=== PATIENT | female | born 1980 | race Caucasian/White ===

== ENCOUNTER → 2018-12-04 | Day surgery (SDC) | payer OTHER ==
[~2018-12-04] MED LIST: FENTANYL CITRATE/PF 100MCG/2 ML INJ ONE; FERROUS SULFAT325 M1 PO; LEVOTHYROXINE112 MCG PO; LEXAPRO10 MG PO; LUNESTA2 MG PO; MIDAZOLAM HCL 2 MG/2 ML VIAL ONE; MIDAZOLAM HCL 5MG/ML 2ML VIAL ONE; NEXIUM40 M1 PO; PROPOFOL IV EMULSION 10 MG/ML 50 ML VIAL ONE
--- OUTSIDE RECORDS SUMMARY | 2018-12-04 09:08 | XMS REPORT ---
Author Author [facility] Address Unknown Phone Unavailable Care Team Providers Care Assembler Clip On Sunglasses Name Role Phone Unavailable Unavailable Payers Payer Name Policy Type Policy Number Effective Date Expiration Date Problems This patient has no known problems. Allergies, Adverse Reactions, Alerts Allergy Name Allergy Type Status Severity Reaction(s) Onset Date Inactive Date Treating Clinician Comments No Known Allergies DA Active U 2018-10-26 00:00:00 Medications This patient has no known medications. Results Test Description Test Time Test Comments Text Results Atomic Results Result Comments [facility] 2018-10-28 15:37:00 RUN DATE: 10/28/18 [employer] PAGE 1 RUN TIME: 1537 Specimen Inquiry RUN USER: INTERFACE PATIENT: JOSH ALDANA LOC: GERI U #: [id number] AGE/SX: 38/F ROOM: RE10/26/18[facility] DR: Ludmila Villafuerte MD : 78 BED: DIS: STATUS: [facility] TLOC: SPEC #: [id number] RECD: 10/27/18 STATUS: [facility] #: [id number] CARL: 10/26/18- SUBM DR: Ludmila Villafuerte MD ENTERED: 10/27/18 SP TYPE: GALLBLADD OTHR DR: Sarmad Boudreaux DO ORDERED: GROSS COPIES TO: Ludmila Villafuerte MD [address] [place] [address] [place], [place] [id number] Sarmad Boudreaux DO [address] [place], [place] [id number] MAR KERS: ABNORMAL TISSUE, GALLBLADDER PROCEDURES: GROSS (10/28/18-1028) TISSUES: GALLBLADDER, NOS CLINICAL HISTORY COLLECTION DATE: 10/26/18 FINAL DIAGNOSIS Gallbladder, cholecystectomy: CHOLELITHIASIS ACUTE AND CHRONIC CHOLECYSTITIS WITH PROMINENT ROKITANSKY-ASCHOFF SINUS FORMATION AND PROMINENT GRANULATION TISSUE FORMATION NO MALIGNANCY IDENT IFIED DMW/eboni A [id number] MACROSCOPIC The specimen is received in formalin, labeled with the patient's name, and identified as "gallbladder". It consists of a gallbladder which measures 10 X 3.8 X 3.3 cm. The gallbladder is packed with multiple green-black multifaceted gallstones measuring from 0.9 to 1.3 cm. Gallstone fragments are also present CONTINUED ON NEXT PAGE RUN DATE: 10/28/18 [facility] PAGE 2 RUN TIME: 1537 Specimen Inquiry RUN USER: INTERFACE SPEC #: [id number] PATIENT: JOSH ALDANA #[id number] (Continued) MACROSCOPIC (Continued) as well as black pigment type gallstones measuring from less than 0.1 up to 0.2 cm. The gallbladder mucosa is partially velvety and partially has a finely trabeculated appearance. The gallbladder wall is thickened measuring up to 1.2 cm in thickness. 0.3 cm of cystic duct is attached to the gallbladder. Samples of the specimen are submitted for microscopic evaluation in cassette (1A and 1B). GROSS PERFORMED AT [facility] [address] [place] [address] (p)[phone] MICROSCOPIC All of the stains, including any controls performed, stain appropriately. MICROSCOPIC PERFORMED AT [facility] [address] [place] [address] (R)[phone] PERFORMING SITE Diagnosis performed at: [facility], [address] [place] [address] Signed SIGNATURE ON FILE Erum Jimenze MD 10/28/18 1537 END OF REPORT UR HCG QUAL 2018-10-26 18:20:00 UR HCG QUAL (test code=HCGQLU) NEGATIVE This HCGQL test is NOT applicable for MALE patients.Check with nurse about probable order error.If Tumor Marker Test needed, nurse should order test "HCGTU"(Test #550.80467)
--- OUTSIDE RECORDS SUMMARY | 2018-12-04 09:08 | XMS REPORT | Clinical Summary ---
Author Author [facility] Address Unknown Phone Unavailable Care Team Providers Care Junior Designer Name Role Phone Sarmad Boudreaux DO PCP Allergies No Known Allergies Medications End Date Status Medication Sig Dispensed Refills Start Date Active levothyroxine (SYNTHROID, Take 175 mcg 0 LEVOXYL) 175 mcg tablet by mouth every morning. Active ESZOPICLONE (LUNESTA Take by 0 ORAL) mouth. PRN Active escitalopram (LEXAPRO) 10 Take 10 mg by 2 MG tablet mouth daily. 9 Active esomeprazole (NexIUM) 40 Take 40 mg by 0 MG capsule mouth daily before breakfast. 06/11/2018 fluconazole (DIFLUCAN) Take 1 tablet 1 tablet 0 150 MG tablet (150 mg 9 total) by mouth once for 1 dose. Active Problems Problem Noted Date UTI (urinary tract infection) 10/27/2018 Encounters Care Team Description Date Type Specialty April Mason MD Breast cancer screening 11/25/2018 Hospital Radiology Encounter April Mason MD Other iron deficiency anemia 11/25/2018 Hospital Radiology Encounter April Mason MD Breast cancer screening (Primary Dx) 11/15/2018 Transcribe Access Orders April Mason MD Well woman exam (Primary Dx); Other iron deficiency anemia 11/11/2018 Office Visit Obstetrics and Gynecology April Mason MD 06/11/2018 Telephone Obstetrics and Gynecology April Mason MD 06/10/2018 Telephone Obstetrics and Gynecology after 12/03/2017 Family History Medical History Relation Name Comments Esophageal cancer Father stage 4 No Known Problems Mother Relation Name Status Comments Father Alive Mother Social History Date Tobacco Use Types Packs/Day Years Used Former Smoker Smokeless Tobacco: Never Used Alcohol Use Drinks/Week oz/Week Comments Yes OCC Sex Assigned at Date Recorded Female 11/10/2018 11:48 AM CDT Industry Job Start Date Occupation Not on file Not on file Not on file Travel End Travel History Travel Start No recent travel history available. Last Filed Vital Signs Time Taken Vital Sign Reading 11/11/2018 10:58 AM CDT Blood Pressure 111/71 11/11/2018 10:58 AM CDT Pulse 79 - Temperature - - Respiratory Rate - - Oxygen Saturation - - Inhaled Oxygen - Concentration 11/11/2018 10:58 AM CDT Weight 70.9 kg (156 lb 3.2 oz) 11/11/2018 10:58 AM CDT Height 170.2 cm (5' 7") 11/11/2018 10:58 AM CDT Body Mass Index 24.46 Plan of Treatment Care Team Description Date Type Specialty April Mason MD [address] [place] [address] [phone] 12/14/2018 Office Visit Obstetrics and Gynecology Health Maintenance Due Date Last Done Comments INFLUENZA VACCINE 01/06/2019 Procedures Comments Procedure Name Priority Date/Time Associated Diagnosis MAMMO BREAST SCREEN Routine 11/25/2018 Breast cancer screening TOMOSYNTHESIS BILATERAL 9:58 AM CDT US PELVIC TRANSVAGINAL Routine 11/25/2018 Other iron deficiency 9:54 AM CDT anemia US PELVIC TRANSABDOMINAL Routine 11/25/2018 Other iron deficiency 9:54 AM CDT anemia PARTIAL THROMBOPLASTIN Routine 11/11/2018 Other iron deficiency TIME (PTT) 11:43 AM CDT anemia PROTHROMBIN TIME WITH INR Routine 11/11/2018 Other iron deficiency 11:43 AM CDT anemia T4, FREE Routine 11/11/2018 Other iron deficiency 11:43 AM CDT anemia THYROID STIMULATING Routine 11/11/2018 Other iron deficiency HORMONE 11:43 AM CDT anemia HPV MRNA E6/E7 REFLEX Routine 11/11/2018 HPV 16, 18/45 (REFLEX) 11:39 AM CDT THINPREP TIS PAP Routine 11/11/2018 11:39 AM CDT after 12/03/2017 Results * Mammo Breast Screen Tomosynthesis Bilateral (11/25/2018 9:58 AM CDT) Specimen Narrative Performed At EXAMINATION:MAMMO BREAST SCREEN TOMOSYNTHESIS BILATERAL11/25/2018 [facility] Computer-assisted detection was utilized in the interpretation of this exam. COMPARISONS:None. Baseline imaging. INDICATION:38 year-old female who presents for annual evaluation. FINDINGS: There is scattered fatty and fibroglandular tissue. There are no suspicious mammographic findings. IMPRESSION: No mammographic evidence of malignancy. In the absence of any clinical change, continued routine annual mammographic surveillance per ACR guidelines is recommended. BI-RADS Category 2: BENIGN. [id number] Performing Organization Address City/State/Zipcode Phone Number [facility] [address] [place] [address] * US Pelvic Transabdominal (11/25/2018 9:54 AM CDT) Specimen Narrative Performed At EXAMINATION:US PELVIC TRANSABDOMINAL, US PELVIC TRANSVAGINAL RADIANT CLINICAL HISTORY:D50.8 Other iron deficiency anemias, Vaginal bleeding abnormalnon- COMPARISON:None. TECHNIQUE:Transabdominal and endovaginal sonographic images of the pelvis were obtained. Grayscale, color Doppler, and spectral waveform analysis of the ovarian vessels was performed. FINDINGS: The uterus is 8 x 4.3 x 4.8 cm.The endometrial strip is obscured by well positioned intrauterine device.There is no myometrial abnormality. The right ovary is 3.3 x 2.7 x 2.3 cm The left ovary is 3.3 x 2.5 x 1.9 cm Both ovaries are normal in appearance.Blood flow to the ovaries is normal. There is a tiny, physiologic volume of free pelvic fluid. There is no adnexal mass. Impression: Appropriately positioned IUD. Otherwise normal study. [id number] Procedure Note Interface, Radiology Results Incoming - 11/25/2018 10:39 AM CDT EXAMINATION: US PELVIC TRANSABDOMINAL, US PELVIC TRANSVAGINAL CLINICAL HISTORY: D50.8 Other iron deficiency anemias, Vaginal bleeding abnormal non- COMPARISON: None. TECHNIQUE:Transabdominal and endovaginal sonographic images of the pelvis were obtained. Grayscale, color Doppler, and spectral waveform analysis of the ovarian vessels was performed. FINDINGS: The uterus is 8 x 4.3 x 4.8 cm. The endometrial strip is obscured by well positioned intrauterine device. There is no myometrial abnormality. The right ovary is 3.3 x 2.7 x 2.3 cm The left ovary is 3.3 x 2.5 x 1.9 cm Both ovaries are normal in appearance. Blood flow to the ovaries is normal. There is a tiny, physiologic volume of free pelvic fluid. There is no adnexal mass. Impression: Appropriately positioned IUD. Otherwise normal study. [id number] Performing Organization Address City/State/Zipcode Phone Number [facility] [address] [place] [address] * US Pelvic Transvaginal (11/25/2018 9:54 AM CDT) Specimen Narrative Performed At EXAMINATION:US PELVIC TRANSABDOMINAL, US PELVIC TRANSVAGINAL [facility] CLINICAL HISTORY:D50.8 Other iron deficiency anemias, Vaginal bleeding abnormalnon- COMPARISON:None. TECHNIQUE:Transabdominal and endovaginal sonographic images of the pelvis were obtained. Grayscale, color Doppler, and spectral waveform analysis of the ovarian vessels was performed. FINDINGS: The uterus is 8 x 4.3 x 4.8 cm.The endometrial strip is obscured by well positioned intrauterine device.There is no myometrial abnormality. The right ovary is 3.3 x 2.7 x 2.3 cm The left ovary is 3.3 x 2.5 x 1.9 cm Both ovaries are normal in appearance.Blood flow to the ovaries is normal. There is a tiny, physiologic volume of free pelvic fluid. There is no adnexal mass. Impression: Appropriately positioned IUD. Otherwise normal study. [id number] Procedure Note Interface, Radiology Results Incoming - 11/25/2018 10:39 AM CDT EXAMINATION: US PELVIC TRANSABDOMINAL, US PELVIC TRANSVAGINAL CLINICAL HISTORY: D50.8 Other iron deficiency anemias, Vaginal bleeding abnormal non- COMPARISON: None. TECHNIQUE:Transabdominal and endovaginal sonographic images of the pelvis were obtained. Grayscale, color Doppler, and spectral waveform analysis of the ovarian vessels was performed. FINDINGS: The uterus is 8 x 4.3 x 4.8 cm. The endometrial strip is obscured by well positioned intrauterine device. There is no myometrial abnormality. The right ovary is 3.3 x 2.7 x 2.3 cm The left ovary is 3.3 x 2.5 x 1.9 cm Both ovaries are normal in appearance. Blood flow to the ovaries is normal. There is a tiny, physiologic volume of free pelvic fluid. There is no adnexal mass. Impression: Appropriately positioned IUD. Otherwise normal study. [facility]-[id number] Performing Organization Address City/[facility] Phone Number [facility] [address] [place] [address] * Partial thromboplastin time, activated (11/11/2018 11:43 AM CDT) PTT 28 22 - 34 sec [facility] Comment: DIAGNOSTICS This test has not been HOLLAND validated for monitoring unfractionated heparin therapy. For testing that is validated for this type of therapy, please refer to the Heparin Anti-Xa assay (test code 54229). For additional information, please refer to http://education.Halotechnics/faq/JOJ591 (This link is being provided for informational/educational purposes only.) Specimen Blood Narrative Performed At FASTING:YES [facility] FASTING: YES Resulting Agency Comment Performing Organization Information: Site ID: [id number] Name: [facility] Address: [address] [place] [phone] Director: Jaylin Solis Performing Organization Address [facility] Medical [place]ercode [place] [address] * Prothrombin time with INR (11/11/2018 11:43 AM CDT) INR 1.0 [facility] Comment: DIAGNOSTICS Reference [facility] Range 0.9-1.1 Moderate-intensity Warfarin Therapy 2.0-3.0 Higher-intensity Warfarin Therapy 3.0-4.0 Prothrombin 10.5 9.0 - 11.5 sec [facility] time Comment: DIAGNOSTICS For more information on this [facility] test, go to: http://education.Swarmforce/faq/SXV886 Specimen Blood Narrative Performed At FASTING:YES [facility] FASTING: YES Resulting Agency Comment Performing Organization Information: Site ID: [id number] Name: [facility] Address: [address] [place] [phone] Director: Jaylin Solis Performing Organization Address [facility] Phone Number [place] [address] * Thyroid stimulating hormone (11/11/2018 11:43 AM CDT) TSH 74.57 (H) mIU/L [facility] Comment: [facility] Range > or=20 Years0.40-4.50 Ranges First trimester0.26-2.66 Second trimester 0.55-2.73 Third trimester0.43-2.91 Specimen Blood Narrative Performed At FASTING:YES [facility] FASTING: YES Resulting Agency Comment Performing Organization Information: Site ID: [id number] Name: [facility] Address: [address] [place] [address] Director: Jaylin Solis Performing Organization Address [facility] Phone Number [facility] [place] [address] * T4, free (11/11/2018 11:43 AM CDT) T4, free 0.5 (L) 0.8 - 1.8 ng/dL [facility] Specimen Blood Narrative Performed At FASTING:YES [facility] FASTING: YES Resulting Agency Comment Performing Organization Information: Site ID: [id number] Name: [facility] Address: [address] [place] [address] Director: Jaylin Solis Performing Organization Address [facility] [place] [address] * HPV mRNA E6/E7 REFLEX HPV 16, 18/45 (11/11/2018 11:39 AM CDT) HPV mRNA e6/e7 Not Detected Not Detected [facility] Comment: DIAGNOSTICS-KIKI This test was performed using ING II the APTIMA HPV Assay ([employer] This assay detects E6/E7 viral messenger RNA (mRNA) from 14 high-risk HPV types (16,18,31,33,35,39,45,51,52,56 ,58,59,66,68). The analytical performance characteristics of this assay have been determined by [employer]. The modifications have not been cleared or approved by the FDA. This assay has been validated pursuant to the CLIA regulations and is used for clinical purposes. Specimen Resulting Agency Comment Performing Organization Information: Site ID: [id number] Name: [facility] Address: [address] [place] [phone] Director: Dr. Fransisco Kincaid Performing Organization Address [facility] Centercode Phone Number JAYSHREE CUMMINGS[address] [address] II * THINPREP TIS PAP (11/11/2018 11:39 AM CDT) Clinical Comment: VAGINAL BLEEDING ON [facility] information EXAM TODAY DIAGNOSTICS [facility] Date of last NONE GIVEN [facility] menstrual DIAGNOSTICS period [facility] Prev. pap: NONE GIVEN [facility] DIAGNOSTICS [facility] Prev. bx: NONE GIVEN [facility] Source Comment: Cervix, Endocervix [facility]NOSTICS [facility] Statement of Comment: [facility] adequacy Satisfactory for evaluation. DIAGNOSTICS Endocervical/transformation [facility] zone component present. Age and/or menstrual status not provided Interpretation/ Comment: Negative for [facility] result: intraepithelial lesion or DIAGNOSTICS malignancy. [facility] Infection Comment: [facility] Shift in vaginal joya DIAGNOSTICS suggestive of bacterial [facility] vaginosis. Comment Comment: [facility] This Pap test has been DIAGNOSTICS evaluated with computer [employer] assisted technology. Tip of collection device in vial [employer] Comment: [facility] t LLL,CT(ASCP) DIAGNOSTICS CT screening location: [address], [place] [address] Comment Comment: [facility] EXPLANATORY NOTE: DIAGNOSTICS The Pap is a screening test [facility] for cervical cancer. It is not a diagnostic test and is subject to false negative and false positive results. It is most reliable when a satisfactory sample, regularly obtained, is submitted with relevant clinical findings and history, and when the Pap result is evaluated along with historic and current clinical information. Specimen Resulting Agency Comment Performing Organization Information: Site ID: [id number] Name: [facility] Address: [address] [place] [id number] Director: Jaylin Solis Performing Organization Address [facility]/Zipcode Phone Number JAYSHREE CUMMINGS [address] [address] after 12/03/2017 Insurance Type Payer Benefit Subscriber ID Effective Phone Address Plan / Dates Group PPO [employer] xxxxxxxxx [id number] [place]/HELEN resent EN RULE Advance Directives Patient has advance care planning documents on file. For more information, abbey neil contact: Thierno Barnett [address] [place] [address]
[2018-12-04 16:01] LABS: IRON 24 ug/dL (50-170)
--- NOTE | 2018-12-04 17:39 | Operative Report ---
DATE OF PROCEDURE: 12/04/2018 SURGEON: Gamaliel Sims MD PROCEDURE: EGD with biopsies and colonoscopy with polypectomy. INDICATIONS FOR EGD: Anemia. INDICATIONS FOR COLONOSCOPY: Anemia. MEDICATIONS: The patient was done under MAC. Please see anesthesiologist's note. PROCEDURE #1: With the patient in left lateral decubitus position, a flexible fiberoptic Olympus gastroscope was introduced into the esophagus under direct visualization without any difficulty. An approximately 3 mm submucosal firm nodule was noted in the mid esophagus and that was biopsied. There was an approximately 3 cm tongue of velvety red mucosa extending proximally from the GE junction and that was biopsied to rule out Desai's. The scope was then advanced with ease into the stomach. Apparently, the patient has a large hiatal hernia, but this also could be due to her gastric sleeve surgery. Mucosa overlying the antrum revealed some patchy intense erythema and moderate edema and biopsies were obtained from the antrum and the body. Some postoperative changes were noted in the body. The pylorus was intubated with ease and the scope was advanced all the way to the second portion of the duodenum. Biopsies were obtained from the proximal second portion and duodenal bulb to rule out sprue. A cluster of nodule was noted in the distal bulb that was biopsied. The scope was then withdrawn back into the stomach and retroflexed and some postoperative changes were noted along with the hiatal hernia. The scope was then straightened out, it was subsequently withdrawn. The patient tolerated the procedure well. IMPRESSION: 1. Approximately 3 mm firm submucosal nodule, mid esophagus, biopsied. 2. Rule out Desai esophagus. 3. Status post gastric sleeve. 4. Gastritis, biopsied. Biopsies sent to stain for H pylori. 5. Cluster of nodule, distal bulb, biopsied. 6. Rule out sprue. PLAN: Follow up histology. Continue Nexium 40 mg one p.o. q.a.m. a.c. PROCEDURE #2: The patient was then turned around after adequate lubrication of the anal canal. A flexible fiberoptic Olympus colonoscope was inserted into the rectum with ease and advanced all the way to the cecum. It was then withdrawn slowly. Mucosa overlying the cecum, ascending colon, transverse colon, and descending colon grossly appeared to be within normal limits. Two polyps were snared and four polyps were hot biopsied from the sigmoid colon. The rectum appeared to be within normal limits. The scope was then retroflexed into the distal rectum and small internal hemorrhoids were noted, none of which was actively bleeding. The scope was then straightened out it was subsequently withdrawn patient tolerated procedure well. IMPRESSION: 1. Sigmoid colon polyps x6, 2 snared and 4 hot biopsied. 2. Internal hemorrhoids, none actively bleeding. PLAN: Follow up histology. Initiate high-fiber, low-fat diet. Initiate high-fiber supplement. The patient will need a small bowel series to complete workup. Might benefit from a followup colonoscopy in 5 years. Gamaliel Sims MD [facility] /[id number] cc: Sarmad Boudreaux DO
[2018-12-04 18:47] LABS: % IRON SATURATION 5 % (15-50); TOTAL IRON BINDING CAPACITY 522 ug/dL (261-478); TRANSFERRIN 373 mg/dL (180-382)
[2018-12-08 15:22] LABS: FOLATE 15.7 ng/mL (7.0-15.4)
== END | disposition home or self-care (01) ==
LOC: OR 09:06
PROVIDERS: ATTEND Internal Medicine Gastroenterology
DX: D64.9 Anemia, unspecified (principal); K63.5 Polyp of colon; K29.50 Unspecified chronic gastritis without bleeding; K22.70 Barrett's esophagus without dysplasia; K22.8 Other specified diseases of esophagus; K31.89 Other diseases of stomach and duodenum; K59.00 Constipation, unspecified; K44.9 Diaphragmatic hernia without obstruction or gangrene; K64.8 Other hemorrhoids; E03.9 Hypothyroidism, unspecified; F41.9 Anxiety disorder, unspecified; Z90.3 Acquired absence of stomach [part of]; Z80.0 Family history of malignant neoplasm of digestive organs
CPT/HCPCS: 36415; 43239; 45384; 45385; 81025; 82607; 82746; 83540; 84466; J2250 ×2; J2704; J3010

== ENCOUNTER → 2018-12-30 | Outpatient (CLI) | payer OTHER ==
[~2018-12-30] MED LIST changes: -FENTANYL CITRATE/PF 100MCG/2 ML INJ ONE; -MIDAZOLAM HCL 2 MG/2 ML VIAL ONE; -MIDAZOLAM HCL 5MG/ML 2ML VIAL ONE; -PROPOFOL IV EMULSION 10 MG/ML 50 ML VIAL ONE
--- NOTE | 2018-12-30 15:59 | Diagnostic Imaging Report ---
Small bowel series, 12/30/2018. History: Anemia. Discussion: A residential framing carpenter film of the abdomen was obtained demonstrating no abnormality. Patient was given barium to drink and sequential digital images of the abdomen were obtained through 1 hr. Fluoroscopic spot images of the terminal ileum were obtained. Fluoroscopy time: 0.3 minutes. Dose: 5.7 mGy (TRIP) The small bowel transit time is normal, and the small bowel loops are normal in size and appearance without evidence of mucosal irregularity or extrinsic abnormality. Terminal ileum is normal. There is no evidence of mass, obstruction, or diverticula. IMPRESSION: Normal small bowel series. Signed by: Hilton Simpson on 12/30/2018 3:56 PM
== END ==
LOC: DX 10:48
PROVIDERS: ATTEND Internal Medicine Gastroenterology
DX: D64.9 Anemia, unspecified (principal)
CPT/HCPCS: 36415; 74250; 81025